=== PATIENT | male | born 2000 | race Caucasian/White ===

== ENCOUNTER 2023-01-23 19:04 | Emergency (ER) | payer MEDICAID, OTHER ==
[~2023-01-23] VITALS: Ht 167.6 cm; Wt 57.0 kg
[2023-01-23 19:40] VITALS: BP 137/97; PULSE 101; RESP 16; TEMP 98.6; O2SAT 98
[2023-01-23] MEDS ORDERED: IBUP-2029 MT (22:09)
== END 2023-01-23 22:35 | disposition home or self-care (01) ==
LOC: ER 19:04
DX: R07.89 Other chest pain (principal)
CPT/HCPCS: 71045; 93005; 99283